=== PATIENT | female | born 1995 | race Caucasian/White ===

== ENCOUNTER → 2021-10-04 14:30 | Outpatient (CLI) | payer OTHER, SELFPAY ==
--- NOTE | ~2021-10-04 | US_ITS ---
US abdomen limited 10/04/2021 14:45 Indication: Splenomegaly Procedure: Limited transabdominal ultrasound of the spleen Comparison: No prior studies for comparison. Findings: Splenic echotexture is normal without focal mass. Spleen size is 10.4 cm, within normal christian its. Impression: 1: Normal spleen. Reviewed, dictated and finalized at location A. Impression: 1: Normal spleen.
== END ==
PROVIDERS: PCP Nurse Practitioner Family; Visit Provider Nurse Practitioner Family
DX: R16.1 Splenomegaly, not elsewhere classified (principal)
CPT/HCPCS: 76705

== ENCOUNTER 2025-01-21 13:29 | Outpatient (CLI) | payer OTHER, SELFPAY ==
--- NOTE | ~2025-01-21 | US_ITS ---
EXAMINATION: US transvaginal, 01/21/2025 13:32 SPLICING TECHNICIAN HISTORY: Pelvic pain Comparison: None Technique: Bell-scale and color Doppler images were obtained. Findings: Uterus: Uterus anteverted 11.8 x 4.6 x 5.8 cm. . Endometrium 12 mm. Right Ovary:Right ovary 3.9 x 2.6 x 1.9 cm, no adnexal mass, normal flow. Left Ovary: Left ovary 2 x 0.8 x 1.1 cm, no adnexal mass, normal flow. Free Fluid: None Impression: No acute process Reviewed, dictated and finalized at location P. CING TECHNICIAN Impression: No acute process
== END 2025-01-21 13:30 | disposition home or self-care (01) ==
LOC: MICIMG 13:31
DX: R10.20 Pelvic and perineal pain unspecified side (principal)
CPT/HCPCS: 76830